=== PATIENT | male | born 1985 | race Caucasian/White ===

== ENCOUNTER 2018-04-04 10:08 | Emergency (ER) | payer MEDICAID ==
[2018-04-04] MEDS ORDERED: Amoxicillin 500 MG Cap PO ONE (10:32)
[2018-04-04] MEDS ORDERED: Ketorolac 60 MG/2 ML SDV IM ONE (10:33)
--- NOTE | 2018-04-04 10:39 | EDM.PDOC ---
ED HPI GENERAL MEDICAL PROBLEM - General Chief Complaint: General Stated Complaint: TOOTH PAIN Time Seen by Provider: 04/04/18 10:15 Source of Information: Reports: Patient, Family History Limitations: Reports: No Limitations - History of Present Illness INITIAL COMMENTS - FREE TEXT/NARRATIVE: c/o dental pain x 2d inc'd pain, not slept in 17h, at R lower jaw, usually occurs 1x/yr and then is better after amoxicillin not seen a dentist in a long time from [facility] [employer]: Reports: Other (see below) Other Treatments [employer]: Tylenol PM at 0300. Tooth pain Pain Score (Numeric/FACES): 10 - Related Data Allergies Allergy/AdvReac Type Severity Reaction Status Date / Time No Known Allergies Allergy Verified 04/04/18 10:09 Home Meds: Home Meds Acetaminophen/Diphenhydramine [Tylenol Pm Ex-Strength Caplet] 2 each PO BEDTIME PRN 04/04/18 [History] Amoxicillin 500 mg PO TID #20 tab 04/04/18 [Rx] Social & Family History - Family History Family Medical History: Noncontributory - Tobacco Use Smoking Status *Q: Current Every Day Smoker Years of Tobacco use: 20 Packs/Tins Daily: 0.5 - Caffeine Use Caffeine Use: Reports: Energy Drinks - Recreational Drug Use Recreational Drug Use: Yes Recreational Drug Type: Reports: Marijuana/Hashish ED ROS GENERAL - Review of Systems Review Of Systems: See Below Constitutional: Reports: No Symptoms HEENT: Reports: Other (dental pain) Respiratory: Reports: No Symptoms Cardiovascular: Reports: No Symptoms Endocrine: Reports: No Symptoms GI/Abdominal: Reports: No Symptoms : Reports: No Symptoms Musculoskeletal: Reports: No Symptoms Skin: Reports: No Symptoms Neurological: Reports: No Symptoms Psychiatric: Reports: No Symptoms Hematologic/Lymphatic: Reports: No Symptoms Immunologic: Reports: No Symptoms ED EXAM, GENERAL - Physical Exam Exam: See Below Exam Limited By: No Limitations General Appearance: WD/WN, Mild Distress, Other (holding jaw in hand) Nose: Normal Inspection, Normal Mucosa Throat/Mouth: Other (no cervical LNs, no STS, tooth #29 is deeply eroded, 75% is missing posteriorly, gingiva is red, very sensitive even to light touch) Head: Atraumatic, Normocephalic Neck: Normal Inspection, Supple, Non-Tender, Full Range of Motion. No: Lymphadenopathy (R), Lymphadenopathy (L) Respiratory/Chest: No Respiratory Distress Cardiovascular: Regular Rate, Rhythm Course - Vital Signs Last Recorded V/S: Last Vital Signs Temp 36.4 C 04/04/18 10:08 Pulse 81 04/04/18 10:08 Resp 16 04/04/18 10:08 BP 150/99 H 04/04/18 10:08 Pulse Ox 100 04/04/18 10:08 - Orders/Labs/Meds Orders: Active Orders 24 hr Category Date Time Status Amoxicillin [Amoxil] Med 04/04/18 10:32 Once 500 mg PO ONETIME ONE Ketorolac [Toradol] Med 04/04/18 10:33 Once 60 mg IM ONETIME ONE Departure - Departure Time of Disposition: 10:33 Disposition: Home, Self-Care 01 Condition: Good Clinical Impression: Pain due to dental caries, Dental abscess, Gingivitis - Discharge Information *PRESCRIPTION DRUG MONITORING PROGRAM REVIEWED*: Not Applicable *COPY OF PRESCRIPTION DRUG MONITORING REPORT IN PATIENT JENAE: Not Applicable Prescriptions: Amoxicillin 500 mg PO TID #20 tab Instructions: Dental Abscess Referrals: PCP,None [Primary Care Provider] - Additional Instructions: For infection, take amoxicillin 500 mg 1 tab 3 times a day for 7 days. For pain, take ibuprofen 200 mg 3 tabs and acetaminophen 500 mg 2 tabs 4 times a day for 1-2 days. Use ice or cold liquids for 10 minutes every hour as needed. See a dentist to have the tooth extracted. - My Orders Last 24 Hours: My Active Orders 04/04/18 10:32 Amoxicillin [Amoxil] 500 mg PO ONETIME ONE 04/04/18 10:33 Ketorolac [Toradol] 60 mg IM ONETIME ONE - Assessment/Plan Last 24 Hours: My Active Orders 04/04/18 10:32 Amoxicillin [Amoxil] 500 mg PO ONETIME ONE 04/04/18 10:33 Ketorolac [Toradol] 60 mg IM ONETIME ONE
== END 2018-04-04 10:53 | disposition home or self-care (01) ==
LOC: FB.ED 10:08
DX: K04.7 Periapical abscess without sinus (principal); K05.10 Chronic gingivitis, plaque induced; K02.9 Dental caries, unspecified; F17.210 Nicotine dependence, cigarettes, uncomplicated
CPT/HCPCS: 96372; 99282; A9270; J1885

== ENCOUNTER 2023-01-30 01:04 | Emergency (ER) | payer SELFPAY | END 2023-01-30 01:54 | disposition home or self-care (01) | LOC: FB.ED 01:04 | DX: S61.512A Laceration without foreign body of left wrist, initial encounter (principal); W22.8XXA Striking against or struck by other objects, initial encounter | CPT/HCPCS: 12001; 99282 ==

== ENCOUNTER 2024-03-28 06:46 | Emergency (ER) | payer SELFPAY ==
[2024-03-28] MEDS ORDERED: Sodium Chloride 0.9% 10 ML Syringe FLUSH PRN (07:02)
[2024-03-28] MEDS: Sodium Chloride 0.9% 1,000 ML IV SCH (07:07)
[2024-03-28 07:13] LABS: BASOPHILS PERCENT AUTO 0.4 % (0.3-3.8); EOSINOPHILS PERCENT AUTO 0.2 % (0.1-6.8); HEMATOCRIT 48.4 % (38.3-50.1); HEMOGLOBIN 16.6 g/dL (12.9-17.7); LYMPHOCYTES ABSOLUTE AUTO 0.7 x10-3/uL (0.5-4.5); LYMPHOCYTES PERCENT AUTO 8.1 % (15.8-45.3); MEAN CORPUSCULAR HEMOGLOBIN 33.5 pg (27.0-33.3); MEAN CORPUSCULAR HGB CONC 34.4 g/dL (28.7-35.3); MEAN CORPUSCULAR VOLUME 97.5 fL (80.8-98.7); MEAN PLATELET VOLUME 9.9 fL (6.7-11.0); MONOCYTES ABSOLUTE AUTO 0.6 x10-3/uL (0.0-1.2); MONOCYTES PERCENT AUTO 6.4 % (5.5-15.2); NEUTROPHILS ABSOLUTE AUTO 7.6 x10-3/uL (1.7-6.9); NEUTROPHILS PERCENT AUTO 84.9 % (40.3-71.8); PLATELET COUNT,PLT 173 x10(3)uL (117-477); RED BLOOD CELL COUNT 4.97 x10(6)uL (3.90-5.90); RED CELL DISTRIBUTION WIDTH 12.8 % (12.4-15.0)
[2024-03-28 07:21] LABS: BLOOD UREA NITROGEN,BUN 21 mg/dL (7-18); BUN/CREATININE RATIO 17.5 (9-20); CALCIUM 9.2 mg/dL (8.6-10.2); CARBON DIOXIDE,CO2 21 mmol/L (21-32); CHLORIDE,CL 100 mmol/L (100-110); CREATININE 1.2 mg/dL (0.70-1.30); ESTIMATED GFR 79 mL/min (>60); GLUCOSE RANDOM 126 mg/dL (80-116); POTASSIUM,K 3.4 mmol/L (3.5-5.3); SODIUM,NA 138 mmol/L (135-145)
[2024-03-28 07:27] LABS: A/G RATIO 1.2; ALANINE AMINOTRANSFERASE,ALT 36 U/L (12-36); ALBUMIN 4.2 g/dL (3.5-5.2); ALKALINE PHOSPHATASE 70 IU/L (56-112); ASPARTATE AMNIOTRANSFERASE,AST 23 IU/L (5-25); BILIRUBIN TOTAL 0.7 mg/dL (0.1-1.3); PROTEIN TOTAL,TP 7.8 g/dL (6.0-8.0)
[2024-03-28] MEDS: LORazepam 2 MG/ML SDV IVPUSH ONE (07:38)
[2024-03-28] MEDS: Potassium Chloride 20 MEQ Tab.ER PO ONE (07:38)
== END 2024-03-28 08:15 | disposition home or self-care (01) ==
LOC: FB.ED 06:46
DX: R07.9 Chest pain, unspecified (principal); E87.6 Hypokalemia; F17.210 Nicotine dependence, cigarettes, uncomplicated; Z79.899 Other long term (current) drug therapy
CPT/HCPCS: 71045; 80053; 80307; 84484; 85025; 93005; 96361; 96374; 99285; J2060; J7030